=== PATIENT | female | born 1955 | race Caucasian/White ===

== ENCOUNTER 2024-01-06 13:51 | Emergency (ER) | payer MEDICARE, OTHER ==
[~2024-01-06] VITALS: Ht 160 cm; Wt 59.1 kg
[2024-01-06 14:02] VITALS: TEMP 98.9
[2024-01-06] MEDS: BACITRACIN 0.9 GM PACKET OINTMENT TP ONE ×2 (15:00→15:12)
[2024-01-06] MEDS: LIDOCAINE 1% 10 ML VIAL SQ ONE (15:12)
[2024-01-06 15:58] VITALS: BP 133/84; PULSE 86; RESP 16
[2024-01-06] MEDS: CeFAZolin 1 GM/DEXTROSE 50 ML IV ONE (16:35)
[2024-01-06] MEDS: PERTUSS(ACELL),DIPH,TET/PF 0.5 ML SYRINGE [ADULT] IM. ONE (16:36)
== END 2024-01-06 17:30 | disposition short-term general hospital (02) ==
LOC: EMS 13:52
DX: S52.502A Unspecified fracture of the lower end of left radius, initial encounter for closed fracture (principal); J44.9 Chronic obstructive pulmonary disease, unspecified; Z88.5 Allergy status to narcotic agent; W54.0XXA Bitten by dog, initial encounter; Y93.89 Activity, other specified; Y92.89 Other specified places as the place of occurrence of the external cause; Y99.8 Other external cause status
CPT/HCPCS: 99284; 96365; 73110; 90715; 90471; 12001; J0690